=== PATIENT | female | born 1945 | race Caucasian/White ===

== ENCOUNTER 2017-01-21 21:37 | Emergency (ER) | payer MEDICARE, OTHER ==
[~2017-01-21] VITALS: Ht 165.1 cm; Wt 99.6 kg
[2017-01-21 21:45] VITALS: BP 143/77
[2017-01-21] MEDS ORDERED: DEXAMETHASONE 4 MG TABLET PO STA (22:20)
[2017-01-21] MEDS ORDERED: DEXAMETHASONE 4 MG TABLET ONE (22:20)
== END 2017-01-21 23:32 | disposition home or self-care (01) ==
LOC: ED 23:26
DX: J20.8 Acute bronchitis due to other specified organisms (principal); M81.0 Age-related osteoporosis without current pathological fracture; I10 Essential (primary) hypertension; F32.9 Major depressive disorder, single episode, unspecified
CPT/HCPCS: 71020; 93005